=== PATIENT | female | born 1950 | race American Indian/Alaskan Native ===

== ENCOUNTER 2017-11-06 09:27 | Emergency (ER) | payer MEDICARE ==
[2017-11-06 10:16] VITALS: BP 150/62
--- NOTE | 2017-11-06 11:44 | Emergency Department Report ---
Minor Respiratory - HPI Chief Complaint: Upper Respiratory Infection Stated Complaint: CONGESTION Time Seen by Provider: 11/06/17 11:18 Duration: 5 Days Pain Location: Chest (congestion) Minor Respiratory: Yes Able to Tolerate Fluids, No Rhinorrhea, No Sore Throat, No Ear Pain, No Cough, No Sick Contacts, No Hemoptysis, No Chest Pain, No Shortness of Breath, No Fever Other History: This is a 67-year-old female with no prior medical history who presents to ED complaining of congestion and development to date. Patient states she feels very congested and states she feels great blotches dealing with the congestion. She denies fever assess shows sinus nausea vomiting or any other Problems. ED Review of Systems ROS: Stated complaint: CONGESTION Other details as noted in HPI Constitutional: denies: chills, fever Eyes: denies: eye pain, eye discharge, vision change ENT: congestion. denies: ear pain, throat pain Respiratory: denies: cough, shortness of breath, wheezing Cardiovascular: denies: chest pain, palpitations Endocrine: no symptoms reported Gastrointestinal: denies: abdominal pain, nausea, diarrhea Genitourinary: denies: urgency, dysuria, discharge Musculoskeletal: denies: back pain, joint swelling, arthralgia Skin: denies: rash, lesions Neurological: denies: headache, weakness, paresthesias Psychiatric: denies: anxiety, depression Hematological/Lymphatic: denies: easy bleeding, easy bruising ED Past Medical Hx - Past Medical History Previous Medical History?: No - Surgical History Additional Surgical History: RIGHT EAR DRUM SURGURY X2 PT WEARS HEARING AID IN BOTH EARS. HYSTERECTOMY. CATARACT SURGURY BOTH EYES - Social History Smoking Status: Never Smoker Substance Use Type: None - Medications Home Medications: Home Medications Medication Instructions Recorded Confirmed Last Taken Type Benzonatate [Tessalon Perles] 100 mg PO Q8HR #30 capsule 11/06/17 Unknown Rx guaiFENesin ER [Mucinex ER] 600 mg PO Q12H #20 tablet.er 11/06/17 Unknown Rx Minor Respiratory Exam - Exam General: Vital signs noted. No distress. Alert and acting appropriately. HEENT: Yes Moist Mucous Membranes, No Pharyngeal Erythema, No Pharyngeal Exudates, No Rhinorrhea, No Conjuctival Injection, No Frontal Tenderness, No Maxillary Tenderness Ear: Neither TM Bulge, Neither TM Erythema, Neither EAC Pain, Neither EAC Discharge Neck: Yes Supple, No Adenopathy Lungs: Yes Good Air Exchange, No Wheezes, No Ronchi, No Stridor, No Cough, No Labored Respirations, No Retractions, No Use of Accessory Muscles, No Other Abnormal Lung Sounds Heart: Yes Regular, No Murmur Abdomen: Yes Normal Bowel Sounds, No Tenderness, No Peritoneal Signs Skin: No Rash, No Edema Neurologic: Alert and oriented, no deficits. Musculoskeletal: Unremarkable. ED Course Vital Signs 11/06/17 10:11 Temperature 98.4 F Pulse Rate 70 Respiratory 18 Rate Blood Pressure 150/62 O2 Sat by Pulse 99 Oximetry ED Medical Decision Making - Medical Decision Making 67-year-old female presents with chest congestion. ED course: Robitussin given in ED. I discussed the patient she'll be going to want some expectorant and decongestant. I discussed the patient to follow up with primary care physician. I discussed if worsening symptoms to return to ED Discussed with the patient that to continue hailee and Tao sees to help soothe the throat. Vital signs are normal patient is in no acute or respiratory distress she is speaking in complete sentences with no neuro deficit Critical care attestation.: If time is entered above; I have spent that time in minutes in the direct care of this critically ill patient, excluding procedure time. ED Disposition Clinical Impression: Upper respiratory infection Qualifiers: URI type: unspecified URI Qualified Code(s): J06.9 - Acute upper respiratory infection, unspecified Disposition: -01 TO HOME OR SELFCARE Is pt being admited?: No Does the pt Need Aspirin: No Condition: Stable Instructions: Upper Respiratory Infection (ED), Decongestant/Expectorant (By mouth) Additional Instructions: Make sure to follow up with the primary care physician as discussed. Take all your medications as you've been prescribed. If you have any worsening symptoms or develop new symptoms please return to ED immediately. Prescriptions: Benzonatate [Tessalon Perles] 100 mg PO Q8HR #30 capsule guaiFENesin ER [Mucinex ER] 600 mg PO Q12H #20 tablet.er Referrals: PEREZ HUGHES MD [Primary Care Provider] - 3-5 Days Forms: Work/School Release Form(ED) Time of Disposition: 11:50
[2017-11-06] MEDS ORDERED: ROBITUSSIN PO ONE (11:48)
== END 2017-11-06 12:05 | disposition home or self-care (01) ==
LOC: ED 09:27
DX: J06.9 Acute upper respiratory infection, unspecified (principal); Z90.710 Acquired absence of both cervix and uterus
CPT/HCPCS: 99282